=== PATIENT | female | born 1940 | race Caucasian/White ===

== ENCOUNTER 2016-11-28 11:52 | Emergency (ER) | payer MEDICARE ==
[2016-11-28 12:19] VITALS: BP 145/85
--- NOTE | 2016-11-28 12:46 | EDM.PDOC ---
[id number] Complaint: FELL HURT LEFT WRIST Time Seen by Provider: 11/28/16 12:30 Source of Information: Reports: Patient, Family History Limitations: Reports: No Limitations - History of Present Illness INITIAL COMMENTS - FREE TEXT/NARRATIVE: 76-year-old female stumbled forward striking her left shoulder on the floor. She now has significant discomfort in the proximal left humerus and anterior left shoulder. Denies any numbness in the arm, denies elbow or wrist pain. No shortness of breath or pleuritic pain with breathing. Onset: Sudden Duration: Hour(s): (Within the last few hours) Location: Reports: Upper Extremity, Left Severity: Mild Worsens with: Reports: Other (Abducting the arm is painful) Associated Symptoms: Reports: No Other Symptoms - Related Data Allergies Allergy/AdvReac Type Severity Reaction Status Date / Time No Known Allergies Allergy Verified 11/28/16 12:26 Home Meds: Home Meds Oxybutynin 11/28/16 [History] Pravastatin [Pravachol] 11/28/16 [History] amLODIPine/atorvaSTATin [Amlodipine-Atorvast 5-10 mg] 11/28/16 [History] Past Medical History Musculoskeletal History: Reports: Osteoporosis Oncologic (Cancer) History: Reports: Colon, Pancreatic - Past Surgical History HEENT Surgical History: Reports: Tonsillectomy, Other (See Below) Other HEENT Surgeries/Procedures: EAR Female Surgical History: Reports: Hysterectomy Social & Family History - Tobacco Use Smoking Status *Q: Never Smoker Review of Systems - Review of Systems Review Of Systems: See Below Constitutional: Denies: Fever Respiratory: Denies: Shortness of Breath, Pleuritic Chest Pain GI/Abdominal: Denies: Abdominal Pain Musculoskeletal: Denies: Neck Pain Skin: Denies: Bruising Neurological: Denies: Paresthesia Psychiatric: Reports: No Symptoms ED EXAM, GENERAL - Physical Exam Exam: See Below Exam Limited By: No Limitations General Appearance: Alert, No Apparent Distress Respiratory/Chest: No Respiratory Distress, Lungs Clear Extremities: Other (clavicular pain, she is tender over the anterior aspect of the proximal humerus on the left side.) Neurological: Alert, Oriented Course - Vital Signs Last Recorded V/S: Last Vital Signs Temp 97.4 F 11/28/16 12:36 Pulse 82 11/28/16 12:36 Resp 16 11/28/16 12:36 BP 145/85 H 11/28/16 12:36 Pulse Ox 92 L 11/28/16 12:36 - Orders/Labs/Meds Orders: Active Orders 24 hr Category Date Time Status Humerus Lt [CR] Stat Exams 11/28/16 12:43 Taken - Re-Assessments/Exams Free Text/Narrative Re-Assessment/Exam: 11/28/16 12:45 A left humerus x-ray was obtained. 11/28/16 13:07 X-ray was negative. Patient was encouraged to increase activity as tolerated. Departure - Departure Time of Disposition: 13:24 Disposition: Home, Self-Care 01 Condition: Good Clinical Impression: Contusion of shoulder, left Qualifiers: Encounter type: initial encounter Qualified Code(s): S40.012A - Contusion of left shoulder, initial encounter - Discharge Information Instructions: Shoulder Pain, [id number] Referrals: PCP,None [Primary Care Provider] - Forms: ED Department Discharge Care Plan Goals: Increase activity as tolerated. Recheck in 5-10 days if not improving satisfactorily. - My Orders Last 24 Hours: My Active Orders 11/28/16 12:43 Humerus Lt [CR] Stat - Assessment/Plan Last 24 Hours: My Active Orders 11/28/16 12:43 Humerus Lt [CR] Stat
--- NOTE | 2016-11-29 12:14 | CR ---
No fracture or dislocation.
== END 2016-11-28 13:24 | disposition home or self-care (01) ==
LOC: JP.ED 11:52
DX: S40.012A Contusion of left shoulder, initial encounter (principal); Z90.710 Acquired absence of both cervix and uterus; Z98.890 Other specified postprocedural states; W01.0XXA Fall on same level from slipping, tripping and stumbling without subsequent striking against object, initial encounter
CPT/HCPCS: 73060-26-LT; 73060-LT; 99283; 99284